=== PATIENT | female | born 1945 | race African-American/Black ===

== ENCOUNTER 2021-07-03 08:12 | Day surgery (SDC) | payer OTHER ==
[2021-06-27 17:47] VITALS: BMI 27.9
[2021-07-03] MEDS: CYCLOPENTOLATE 2% OPHTH SOLN 2 ML BOTTLE ONE ×3 (09:00→09:10)
[2021-07-03] MEDS: TROPICAMIDE 1% OPHTH SOLN 15 ML BOTTLE ONE ×3 (09:00→09:10)
[2021-07-03] MEDS: CIPROFLOXACIN 0.3% EYE DROPS 5 ML BOTTLE ONE ×3 (09:00→09:10)
[2021-07-03] MEDS: PHENYLEPHRINE 2.5% OPHTH SOLN 15 ML BOTTLE ONE ×3 (09:00→09:10)
[2021-07-03] MEDS ORDERED: CARBACHOL 0.01% INTRA-OCULAR 1.5 ML VIAL ONE (09:49)
[2021-07-03] MEDS ORDERED: BSS (NA/CA/MG/K) BALANCED SALT SOLUTION OPHTH SOLN 15 ML BOTTLE ONE (09:49)
[2021-07-03] MEDS ORDERED: MIDAZOLAM HCL 2 MG/2 ML SINGLE DOSE VIAL ONE (10:42)
[2021-07-03 11:22] VITALS: TEMP 98.1
[2021-07-03 11:39] VITALS: BP 129/69; PULSE 69
[2021-07-03] MEDS ORDERED: ONDANSETRON 4 MG/2 ML VIAL IVPUSH PRN (11:44)
[2021-07-03] MEDS ORDERED: ACETAMINOPHEN 325 MG TABLET (FP) PO PRN (11:44)
[2021-07-03] MEDS ORDERED: LACTATED RINGERS SOLUTION 1,000 ML IV SCH (11:45)
== END 2021-07-03 12:00 | disposition home or self-care (01) ==
LOC: FASU 08:12
PROVIDERS: ATTEND Ophthalmology
PROC: 08RK3JZ Replacement of Left Lens with Synthetic Substitute, Percutaneous Approach (ICD-10-PCS; principal; 2021-07-03 10:48)
DX: H26.8 Other specified cataract (principal)
CPT/HCPCS: 66984; V2632

== ENCOUNTER 2021-09-04 08:21 | Day surgery (SDC) | payer OTHER ==
[2021-09-02 12:28] VITALS: BMI 27.9
[2021-09-04] MEDS: PHENYLEPHRINE 2.5% OPHTH SOLN 15 ML BOTTLE ONE ×3 (08:55→09:05)
[2021-09-04] MEDS: CIPROFLOXACIN 0.3% EYE DROPS 5 ML BOTTLE ONE ×3 (08:55→09:05)
[2021-09-04] MEDS: TROPICAMIDE 1% OPHTH SOLN 15 ML BOTTLE ONE ×3 (08:55→09:05)
[2021-09-04] MEDS: CYCLOPENTOLATE 2% OPHTH SOLN 2 ML BOTTLE ONE ×3 (08:55→09:05)
[2021-09-04] MEDS ORDERED: TETRACAINE 0.5% OPHTH SOLN 2 ML BOTTLE ONE (09:41)
[2021-09-04] MEDS ORDERED: CARBACHOL 0.01% INTRA-OCULAR 1.5 ML VIAL ONE (09:41)
[2021-09-04] MEDS ORDERED: EPINEPHrine/PF 1 MG/1 ML (1:1,000) AMPULE ONE (09:41)
[2021-09-04] MEDS ORDERED: NEO/POLYMYX B SULF/DEXAMETH OPHTHALMIC 5ML BOTTLE ONE (09:41)
[2021-09-04] MEDS ORDERED: LIDOCAINE HCL/PF 1% SDV 5ML VIAL ONE (09:41)
[2021-09-04] MEDS ORDERED: BSS (NA/CA/MG/K) BALANCED SALT SOLUTION OPHTH SOLN 15 ML BOTTLE ONE (09:41)
[2021-09-04] MEDS ORDERED: MIDAZOLAM HCL 2 MG/2 ML SINGLE DOSE VIAL ONE (10:10)
[2021-09-04 10:57] VITALS: BP 126/69; PULSE 64; TEMP 97.8
== END 2021-09-04 12:00 | disposition home or self-care (01) ==
LOC: FASU 08:21
PROVIDERS: ATTEND Ophthalmology
PROC: 08RJ3JZ Replacement of Right Lens with Synthetic Substitute, Percutaneous Approach (ICD-10-PCS; principal; 2021-09-04 10:22)
DX: H26.8 Other specified cataract (principal)
CPT/HCPCS: 66984; V2632